=== PATIENT | male | born 1950 | race Caucasian/White ===

== ENCOUNTER 2023-07-22 10:14 | Emergency (ER) | payer MEDICARE ==
[~2023-07-22] VITALS: Ht 188 cm; Wt 93.1 kg
[2023-07-22] VITALS (32 sets, daily range): BP systolic 77–159; BP diastolic 46–127
[2023-07-22] MEDS ORDERED: BRILINTA90 MG PO (10:47)
[2023-07-22] MEDS ORDERED: TAMSULOSIN0.4 MG PO (10:47)
[2023-07-22] MEDS ORDERED: LISINOPRIL10 MG PO (10:47)
[2023-07-22] MEDS ORDERED: CIALIS20 MG PO (10:48)
[2023-07-22] MEDS ORDERED: NITROSTAT0.4 MG SL (10:49)
[2023-07-22] MEDS ORDERED: CABERGOLINE PO (10:49)
[2023-07-22] MEDS ORDERED: BUPROPION HCL150 MG PO (10:50)
[2023-07-22] MEDS ORDERED: CRESTOR20 MG PO (10:50)
[2023-07-22] MEDS ORDERED: ANORO ELLIPTA 61 AER IN (10:50)
[2023-07-22] MEDS ORDERED: ASPIRINCHW 81MG PO (10:51)
[2023-07-22] MEDS ORDERED: [UNRECOGNIZED DRUG - OTHER] PO (10:52)
[2023-07-22 10:58] LABS: BASO% 0.2 % (0-3); EOS% 1.1 % (0-8); HEMOGLOBIN 16.8 g/dl (14.0-18.0); IMMATURE GRANULOCYTES 0.2 % (0.0-5.0); LYMPH% 23.2 % (15-41); MEAN CELL VOLUME 89.6 fL CALC (80.0-100.0); MEAN CORPUSCULAR HGB 30.1 pG CALC (26.0-32.0); MEAN CORPUSCULAR HGB CONC 33.6 g/dL CAL (32.0-36.0); MONO% 7.9 % (2-13); NEUT# 3.52 thou/uL (1.82-7.42); NEUT% 67.4 % (42-76); RED BLOOD COUNT 5.58 mill/uL (4.70-6.10); RED CELL DISTRI WIDTH 13.9 % (11.5-15.5)
[2023-07-22 11:05] LABS: ALBUMIN 4.6 g/dL (3.2-5.0); ALKALINE PHOSPHATASE 115 u/l (38-126); ANION GAP 16 (6-22 (CALC)); BILIRUBIN, TOTAL 0.5 mg/dL (0.2-1.3); BUN 42 mg/dL (8-23); BUN/CREATININE RATIO 16 (12-20 (CALC)); CARBON DIOXIDE 23 mmol/l (22-30); CHLORIDE 107 mmol/l (95-108); CREATININE 2.7 mg/dL (0.7-1.3); GFR FOR AFR.AMER. 28 ML/MIN (>=60 (CALC)); GFR OTHER RACES 23 ML/MIN (>=60 (CALC)); POTASSIUM 4.7 mmol/l (3.5-5.1); SGOT/AST 33 u/l (19-48); SODIUM 140 mmol/l (137-146); TOTAL PROTEIN 7.3 g/dL (6.3-8.2)
[2023-07-22 11:14] LABS: INTERNATIONAL NORMALIZED RATIO 1.1 RATIO (0.7-1.3); PROTHROMBIN TIME 10.1 SECONDS (9.0-12.5)
[2023-07-22 11:19] LABS: D-DIMER 12.53 mg/L (0.19-0.60)
[2023-07-22 14:40] LABS: URINE BILIRUBIN - DIPSTICK Negative (NEGATIVE); URINE BLOOD DIPSTICK Negative (NEGATIVE); URINE COLOR Yellow; URINE GLUCOSE - DIPSTICK Negative (NEGATIVE); URINE KETONE Negative (NEGATIVE); URINE LEUK ESTERASE Negative (NEGATIVE); URINE NITRITE - DIPSTICK Negative (Negative); URINE PH 5.5 (4.5-8.0); URINE PROTEIN - DIPSTICK 100 mg/dL (NEG-TRACE); URINE SPECIFIC GRAVITY 1.015; URINE UROBILINOGEN - DIPSTICK 0.2 E.U./dL (0.2)
[2023-07-22 14:49] LABS: URINE RBC 0-2 RBC/hpf (0-5); URINE SQUAMOUS EPITHELIAL CELL RARE EPI/hpf (0-FEW)
== END 2023-07-22 18:34 ==
LOC: ED 10:14
PROVIDERS: Family Medicine
DX: R91.1 Solitary pulmonary nodule (principal); R79.89 Other specified abnormal findings of blood chemistry; J98.11 Atelectasis; I65.23 Occlusion and stenosis of bilateral carotid arteries; I10 Essential (primary) hypertension; J44.9 Chronic obstructive pulmonary disease, unspecified; I25.10 Atherosclerotic heart disease of native coronary artery without angina pectoris; E78.00 Pure hypercholesterolemia, unspecified; I25.2 Old myocardial infarction; F17.210 Nicotine dependence, cigarettes, uncomplicated; Z86.73 Personal history of transient ischemic attack (TIA), and cerebral infarction without residual deficits; Z95.5 Presence of coronary angioplasty implant and graft; Z20.822 Contact with and (suspected) exposure to COVID-19